=== PATIENT | male | born 1980 | race Caucasian/White ===

== ENCOUNTER 2018-03-07 16:49 | Emergency (ER) | payer MEDICAID ==
[~2018-03-07] VITALS: Ht 180.3 cm; Wt 105.9 kg
[2018-03-07 17:25] LABS: BASOPHILS # (AUTO) 0.07 x10^3/uL (0-0.1); BASOPHILS % (AUTO) 1 % (0-1); EOSINOPHILS # (AUTO) 0.29 x10^3/uL (0-0.4); EOSINOPHILS % (AUTO) 3 % (1-7); LYMPHOCYTES # (AUTO) 2.82 x10^3/uL (1-3.4); LYMPHOCYTES % (AUTO) 25 % (22-44); MD NO; MEAN CORPUSCULAR HEMOGLOBIN 32.1 pg (27.5-34.5); MEAN CORPUSCULAR HGB CONC 34.2 g/dL (33.2-36.2); MEAN CORPUSCULAR VOLUME 93.9 fL (81-97); MEAN PLATELET VOLUME 7.3 fL (7.4-10.4); MONOCYTES # (AUTO) 0.85 x10^3/uL (0.2-0.8); MONOCYTES % (AUTO) 7 % (2-9); NEUTROPHILS # (AUTO) 7.47 x10^3/uL (1.8-6.8); NEUTROPHILS % (AUTO) 65 % (42-75); PLATELET COUNT 313 x10^3/uL (130-400); RED BLOOD COUNT 5.17 x10^6/uL (4.38-5.82); RED CELL DISTRIBUTION WIDTH 13.3 % (9.4-14.8)
[2018-03-07 17:34] LABS: RAPID INFLUENZA A Negative (Negative); RAPID INFLUENZA B Negative (Negative)
[2018-03-07 17:35] LABS: ALBUMIN 4.1 g/dL (3.4-5.0); ANION GAP 10 mmol/L (5-15); CALCIUM 8.9 mg/dL (8.5-10.1); CHLORIDE 108 mmol/L (98-107); CREATININE 1.47 mg/dL (0.7-1.3)
[2018-03-07] MEDS ORDERED: FAMOTIDINE 20 MG/2 ML ONE (17:43)
[2018-03-07] MEDS ORDERED: ONDANSETRON 2MG/ML, 2ML ONE (17:43)
[2018-03-07] MEDS ORDERED: SODIUM CHLORIDE FLUSH 10ML SYR IVF ONE (18:00)
[2018-03-07] MEDS ORDERED: ONDANSETRON 2MG/ML, 2ML IVPush ONE (18:00)
[2018-03-07] MEDS ORDERED: SODIUM CHLORIDE 0.9% 1,000ML IVBOLUS ONE (18:00)
[2018-03-07] MEDS ORDERED: FAMOTIDINE 20 MG/2 ML IVP ONE (18:00)
[2018-03-07 19:08] VITALS: BP 150/87
== END 2018-03-07 19:20 | disposition home or self-care (01) ==
LOC: ED 19:05
DX: E86.0 Dehydration (principal); R19.7 Diarrhea, unspecified; R11.2 Nausea with vomiting, unspecified; Z21 Asymptomatic human immunodeficiency virus [HIV] infection status
CPT/HCPCS: 36415; 74021; 80048; 82040; 85025; 87400; 96361; 96374; 96375; 99284; J2405; J3490; J7030

== ENCOUNTER 2019-03-04 11:24 | Emergency (ER) | payer MEDICAID ==
[~2019-03-04] VITALS: Ht 180.3 cm; Wt 95.9 kg
--- NOTE | 2019-03-04 13:03 | NUR ---
PT. WAS GIVEN DISCHARGE INSTRUCTIONS AND SCRIPTS WITH UNDERSTANDING VERBALIZED ALONG WITH WILLINGNESS TO COMPLY. PT. WAS AMBULATORY TO THE DISCHARGE DESK. VSS.
[2019-03-04 13:05] VITALS: BP 143/89
== END 2019-03-04 13:09 | disposition home or self-care (01) ==
LOC: ED 13:03
DX: H60.11 Cellulitis of right external ear (principal); H72.2X1 Other marginal perforations of tympanic membrane, right ear
CPT/HCPCS: 99283

== ENCOUNTER 2020-02-18 18:28 | Emergency (ER) | payer MEDICAID, OTHER ==
[~2020-02-18] VITALS: Ht 180.3 cm; Wt 106.4 kg
[2020-02-18 18:44] VITALS: BP 144/92
--- NOTE | 2020-02-18 18:51 | NUR ---
LAST TETANUS LESS THAN 1 YEAR AGO
== END 2020-02-18 18:57 | disposition home or self-care (01) ==
LOC: ED 18:30
DX: S61.052A Open bite of left thumb without damage to nail, initial encounter (principal); S41.151A Open bite of right upper arm, initial encounter; W54.0XXA Bitten by dog, initial encounter; Y93.01 Activity, walking, marching and hiking; Y92.488 Other paved roadways as the place of occurrence of the external cause; Y99.8 Other external cause status
CPT/HCPCS: 99283